=== PATIENT | female | born 1990 | race Caucasian/White ===

== ENCOUNTER 2016-07-08 14:52 | Emergency (ER) | payer MEDICAID ==
[2016-07-08] MEDS ORDERED: SODIUM CHLORIDE 0.9% 1,000 ML ONE (22:56)
[2016-07-08] MEDS ORDERED: PANTOPRAZOLE 40 MG VIAL IV ONE (22:56)
[2016-07-08] MEDS ORDERED: FAMOTIDINE 20 MG INJ ONE (22:56)
[2016-07-08] MEDS ORDERED: ONDANSETRON 4 MG VIAL ONE (22:56)
== END 2016-07-08 16:28 | disposition left against medical advice (07) ==
LOC: ER 14:52
DX: Z53.21 Procedure and treatment not carried out due to patient leaving prior to being seen by health care provider (principal)
CPT/HCPCS: 36415; 80053; 85025